=== PATIENT | female | born 1995 | race Hispanic/Latino ===

== ENCOUNTER 2017-08-11 14:51 | Emergency (ER) | payer MEDICAID ==
[2017-08-11 16:06] LABS: BASOPHILS % (AUTO) 0.5 % (0.0-5.0); EOSINOPHILS % (AUTO) 0.8 % (0.0-8.0); LYMPHOCYTES % (AUTO) 23.4 % (21.0-51.0); MEAN CORPUSCULAR HGB CONC 34.1 g/dL (32.0-36.0); MEAN CORPUSCULAR VOLUME 88.1 fL (79-99); MONOCYTES % (AUTO) 5.6 % (3.0-13.0); NEUTROPHILS % (AUTO) 69.7 % (40.0-77.0); PLATELET COUNT (AUTO) 299 K/uL (130-400); RED BLOOD CELL COUNT(AUTO) 4.31 MIL/uL (4.00-5.50); RED CELL DISTRIBUTION WIDTH 14.2 % (11.0-15.5)
[2017-08-11 16:14] LABS: CREATININE 0.6 mg/dL (0.5-1.5); POTASSIUM 3.7 mmol/L (3.5-5.1)
[2017-08-11 16:31] LABS: APPEARANCE,URINE Clear (CLEAR); BILIRUBIN,URINE Negative (NEGATIVE); COLOR,URINE Yellow (YELLOW); GLUCOSE, URINE (UA) Negative (NEGATIVE); KETONES,URINE Negative (NEGATIVE); LEUKOCYTE ESTERASE ,URINE Negative (NEGATIVE); NITRATE,URINE Negative (NEGATIVE); OCCULT BLOOD,URINE Negative (NEGATIVE); PH,URINE 6.5 (5.0-8.0); PROTEIN,URINE Negative (NEGATIVE)
== END 2017-08-11 17:07 | disposition home or self-care (01) ==
LOC: EDH 14:51
DX: O20.0 Threatened abortion (principal); Z3A.01 Less than 8 weeks gestation of pregnancy
CPT/HCPCS: 36415; 76817; 80048; 81003; 84702; 85025; 86900; 86901

== ENCOUNTER 2017-09-03 17:15 | Emergency (ER) | payer MEDICAID | END 2017-09-03 19:15 | disposition left against medical advice (07) | LOC: EDH 17:15 | DX: Z53.21 Procedure and treatment not carried out due to patient leaving prior to being seen by health care provider (principal) ==

== ENCOUNTER 2018-04-07 11:41 | Observation (INO) | payer MEDICAID ==
[2018-04-12] MEDS ORDERED: PREN-94 PO (23:30)
== END 2018-04-07 13:17 | disposition home or self-care (01) ==
LOC: LDH 11:41
PROVIDERS: ADMIT Obstetrics & Gynecology; ATTEND Obstetrics & Gynecology
DX: O42.913 Preterm premature rupture of membranes, unspecified as to length of time between rupture and onset of labor, third trimester (principal); Z3A.39 39 weeks gestation of pregnancy
CPT/HCPCS: G0378 ×3

== ENCOUNTER 2018-04-09 16:34 | Emergency (ER) | payer MEDICAID ==
[2018-04-12] MEDS ORDERED: PREN-94 PO (23:30)
== END 2018-04-09 21:01 | disposition left against medical advice (07) ==
LOC: EDH 16:34
DX: Z53.21 Procedure and treatment not carried out due to patient leaving prior to being seen by health care provider (principal)

== ENCOUNTER → 2018-04-10 | Emergency (ER) | payer MEDICAID ==
[~2018-04-10] MED LIST: PREN-94 PO
== END ==
LOC: EDH 18:08
DX: Z53.21 Procedure and treatment not carried out due to patient leaving prior to being seen by health care provider (principal)

== ENCOUNTER 2019-10-09 08:07 | Inpatient (IN) | payer MEDICAID ==
[2019-10-09] VITALS (17 sets, daily range): BP systolic 104–133; BP diastolic 40–74
[~2019-10-09] VITALS: Ht 160 cm; Wt 83.0 kg
[2019-10-09] MEDS ORDERED: LACTATED RINGERS 1000ML 1,000 ML IV SCH (08:45)
[2019-10-09] MEDS ORDERED: CEFAZOLIN SODIUM 1 GM VIAL IVP PRN (08:45)
[2019-10-09 09:10] LABS: MEAN CORPUSCULAR HGB CONC 33.1 g/dL (32.0-36.0); MEAN CORPUSCULAR VOLUME 87.6 fL (79-99); PLATELET COUNT (AUTO) 270 K/uL (130-400); RED BLOOD CELL COUNT(AUTO) 4.11 MIL/uL (4.00-5.50); RED CELL DISTRIBUTION WIDTH 13.9 % (11.0-15.5); WHITE BLOOD COUNT (AUTO) 14.6 K/uL (4.8-10.8)
[2019-10-09] MEDS ORDERED: ONDANSETRON HCL 4 MG/2 ML VIAL ONE (11:42)
[2019-10-09] MEDS ORDERED: DEXAMETHASONE SOD PHOSPHATE 10MG/ML 1ML VIAL ONE (11:42)
[2019-10-09] MEDS ORDERED: DURAMORPH PF1 MG/ML 10ML AMP IV ONE (11:43)
[2019-10-09] MEDS ORDERED: OXYTOCIN 10 USP UNITS/ML ONE (11:43)
[2019-10-09] MEDS ORDERED: EPHEDRINE SULFATE 50 MG/ML AMPULE ONE (11:43)
[2019-10-09] MEDS ORDERED: CEFAZOLIN SODIUM 1 GM VIAL IVP ONE (11:55)
--- NOTE | 2019-10-09 13:33 | NUR ---
PATIENT ORIENTED TO ROOM. NO PAIN REPORTED AT THIS TIME. FUNDUS FIRM, BLEEDING IS SMALL. PERICARE DONE AT THIS TIME. PATIENT TOLERATED TURNING ON SIDES WELL. INCENTIVE SPIROMETER USE AND DESIRED EFFECTS EXPLAINED TO PATIENT. LIU CATHETER PATENT AND DRAINING TO BEDSIDE. CALL LIGHT LEFT IN REACH. ADVISED PATIENT TO CALL WITH ANY NEEDS OR CONCERNS.
[2019-10-09] MEDS ORDERED: MEPERIDINE-PF 75 MG/ML SYG IM PRN (14:00)
[2019-10-09] MEDS ORDERED: PROMETHAZINE HCL 25 MG/ML 1ML AMPULE IM PRN (14:00)
[2019-10-09] MEDS ORDERED: OXYTOCIN-LR 20 UNITS/1000 ML 1,000 ML IV PRN (14:00)
[2019-10-09] MEDS ORDERED: SODIUM CHLORIDE 0.9% 10 ML VIAL IVP PRN (14:00)
--- NOTE | 2019-10-09 16:15 | NUR ---
PATIENT BABY AT THIS TIME. NO PAIN REPORTED AT THIS TIME. LIGHTS DIMMED. AT BEDSIDE. CALL LIGHT LEFT IN REACH
--- NOTE | 2019-10-09 16:45 | NUR ---
PATIENT C/O NAUSEA. EMESIS X1 REPORTED. WILL MEDICATE WITH ZOFRAN 2MG IV ORDERED.
[2019-10-09] MEDS ORDERED: ONDANSETRON HCL 4 MG/2 ML VIAL IVP PRN (17:15)
[2019-10-09] MEDS ORDERED: DiphenhydrAMINE HCL 50 MG/ML VIAL IVP PRN (17:15)
[2019-10-09] MEDS ORDERED: NALOXONE HCL 0.4 MG/1 ML ML IVP PRN ×3 (17:15)
[2019-10-09] MEDS ORDERED: EPHEDRINE SULFATE 50 MG/ML AMPULE IVP PRN (17:15)
[2019-10-09] MEDS: DEXTROSE 5 %-0.45 % NACL 1,000 ML IV PRN (18:16)
[2019-10-10 00:23] VITALS: BP 86/40
[2019-10-10 00:38] VITALS: BP 95/50
[2019-10-10] MEDS: DEXTROSE 5 %-0.45 % NACL 1,000 ML IV PRN (00:40)
[2019-10-10 04:24] VITALS: BP 105/55
--- NOTE | 2019-10-10 06:35 | NUR ---
Gallego; Gallego Catheter discontinued, arun care done. Patient assisted to get up dangle her legs and walk inside the room and sit at bedside chair. Patient tolerated well. She was advice to call for help if needed. Linens changed.
[2019-10-10 06:52] LABS: HEMATOCRIT 35.7 % (36-48); MEAN CORPUSCULAR HEMOGLOBIN 29.1 pg (27.0-33.0); MEAN CORPUSCULAR HGB CONC 32.2 g/dL (32.0-36.0); MEAN CORPUSCULAR VOLUME 90.4 fL (79-99); PLATELET COUNT (AUTO) 262 K/uL (130-400); RED BLOOD CELL COUNT(AUTO) 3.95 MIL/uL (4.00-5.50); WHITE BLOOD COUNT (AUTO) 17.7 K/uL (4.8-10.8)
[2019-10-10 07:15] VITALS: BP 106/64
[2019-10-10] MEDS ORDERED: ACETAMINOPHEN EXTRA STRENGTH 500 MG TABLET PO PRN (07:30)
[2019-10-10] MEDS ORDERED: HYDROCODONE/ACETAMINOPHEN 5/325 MG TAB PO PRN (07:30)
[2019-10-10] MEDS ORDERED: IBUPROFEN 600 MG TABLET PO PRN (07:30)
[2019-10-10] MEDS ORDERED: SIMETHICONE 80 MG TAB.CHEW PO PRN (07:30)
[2019-10-10] MEDS ORDERED: BISACODYL 10 MG SUPP.RECT RC PRN (07:30)
[2019-10-10] MEDS ORDERED: ACETAMINOPHEN-CODEINE 300/30MG TAB PO PRN (07:30)
[2019-10-10] MEDS ORDERED: DIPH,PERTUSS(ACELL),TET VAC/PF 0.5 ML VIAL IM SCH (07:30)
[2019-10-10 08:10] LABS: HEPATITIS Bs ANTIGEN SCREEN P Negative (Negative)
--- NOTE | 2019-10-10 08:10 | NUR ---
DRESSING REMOVED. INCISION IS DRY AND INTACT. INCISION CARE REVIEWED WITH PATIENT. QUESTIONS INVITED AND ANSWERED. PATIENT VOICED UNDERSTANDING.
[2019-10-10] MEDS ORDERED: DOCUSATE SODIUM 100 MG CAP PO SCH (09:00)
[2019-10-10 11:27] VITALS: BP 101/61
--- NOTE | 2019-10-10 11:45 | NUR ---
SPOKE WITH VIA TELEPHONE. PATIENT OKAY FOR DISCHARGE HOME.
--- NOTE | 2019-10-10 14:55 | NUR ---
PATIENT LEFT UNIT VIA WHEELCHAIR WITH BABY IN ARMS. PERSONAL VEHICLE USED FOR TRANSPORTATION. BABY SECURE IN CARSEAT. NO COMPLAINTS OR CONCERNS ADDRESSED FROM PATIENT ON DISCHARGE.
== END 2019-10-10 14:55 | disposition home or self-care (01) | DRG 540 ==
LOC: LDH 08:07 → WSH 10:27
PROVIDERS: ADMIT Obstetrics & Gynecology; ATTEND Obstetrics & Gynecology
PROC: 10D00Z1 Extraction of Products of Conception, Low, Open Approach (ICD-10-PCS; principal; 2019-10-10)
PROC: 3E0234Z Introduction of Serum, Toxoid and Vaccine into Muscle, Percutaneous Approach (ICD-10-PCS; 2019-10-10)
DX: O34.211 Maternal care for low transverse scar from previous cesarean delivery (principal); Z23 Encounter for immunization; Z37.0 Single live birth; Z3A.39 39 weeks gestation of pregnancy
CPT/HCPCS: 36415; 59510; 85027; 86592; 86850; 86900; 86901; 87340; 90715; A4344; G0378; J0690; J1100; J1200; J2274; J2405; J2590; J3490; J7120

== ENCOUNTER 2023-08-20 21:24 | Emergency (ER) | payer MEDICAID ==
[~2023-08-20] VITALS: Ht 157.5 cm; Wt 83.9 kg
[2023-08-20 21:26] VITALS: BP 137/56; PULSE 60; RESP 18
[2023-08-20] MEDS: ZOSYN 3.375GM +NS 50ML IV ONE (22:01)
[2023-08-20] MEDS: KETOROLAC 30MG VIAL (30MG/ML) IVP ONE (22:03)
[2023-08-20] MEDS: TETANUS/DIPHTHERIA TOXOID [ADULT] 0.5 ML VIAL IM ONE (22:03)
[2023-08-20] MEDS ORDERED: AMOX-427 PO (22:06)
[2023-08-20] MEDS ORDERED: IBUP-1493 PO (22:06)
== END 2023-08-20 22:47 | disposition home or self-care (01) ==
LOC: EDH 21:24
DX: S61.432A Puncture wound without foreign body of left hand, initial encounter (principal); Z98.890 Other specified postprocedural states; W55.01XA Bitten by cat, initial encounter; Y93.89 Activity, other specified; Y92.89 Other specified places as the place of occurrence of the external cause; Y99.8 Other external cause status
CPT/HCPCS: 99284; 96365; 96375; 90714; 90471; J1885; J2543; 96374